=== PATIENT | female | born 1975 | race Caucasian/White ===

== ENCOUNTER 2017-12-02 15:40 | Emergency (ER) | payer MEDICAID ==
[2017-12-02] MEDS: FAMOTIDINE 20 MG TAB PO (16:38)
[2017-12-02] MEDS: DIPHENHYDRAMINE 25 MG CAP PO (16:38)
[2017-12-02] MEDS: METHYLPREDNISOLONE 125 MG INJ IM (16:42)
== END 2017-12-02 17:42 | disposition home or self-care (01) ==
LOC: FTE 15:40
DX: L50.9 Urticaria, unspecified (principal)
CPT/HCPCS: 96372; 99284-25; J2930